=== PATIENT | female | born 1965 | race Two or more races ===

== ENCOUNTER 2023-05-02 08:22 | Day surgery (SDC) | payer OTHER ==
[~2023-05-02] VITALS: Ht 160 cm; Wt 68.0 kg
[~2023-05-02 08:22] MED LIST: AMBIE PO; ATIVAN0.5 M1 PO; COZAAR100 MG PO; CREST PO; CYMBALTA60 MG PO; EVISTA60 MG PO; GLUMETZA500 MG PO; NORVASC2.5 M1 PO
== END 2023-05-02 15:15 | disposition home or self-care (01) ==
LOC: CIR.AMB 08:22
PROVIDERS: ATTEND Orthopaedic Surgery
DX: G56.21 Lesion of ulnar nerve, right upper limb (principal); M25.321 Other instability, right elbow; I10 Essential (primary) hypertension; Z20.822 Contact with and (suspected) exposure to COVID-19

== ENCOUNTER 2024-04-30 06:34 | Day surgery (SDC) | payer OTHER ==
[~2024-04-30] VITALS: Ht 157.5 cm; Wt 67.1 kg
[2024-04-30] MEDS ORDERED: CLINDAMYCIN PHOSPHATE 150 MG/ML (900mg) ONE (07:39)
[2024-04-30] MEDS ORDERED: BUPIVACAINE HCL/MPF 0.5% 30ML VIAL ONE (09:11)
[2024-04-30] MEDS ORDERED: KETOROLAC TROMETHAMINE 30 MG VIAL ONE (09:11)
[2024-04-30] MEDS ORDERED: LIDOCAINE HCL 1%/EPINEPHRINE 20ML VIAL IJ ONE (09:12)
[2024-04-30] MEDS ORDERED: SUGAMMADEX SODIUM 200 MG/2 ML VIAL IV ONE (10:04)
== END 2024-04-30 13:45 | disposition home or self-care (01) ==
LOC: CIR.AMB 06:34
PROVIDERS: ATTEND Orthopaedic Surgery
DX: M75.122 Complete rotator cuff tear or rupture of left shoulder, not specified as traumatic (principal); M75.22 Bicipital tendinitis, left shoulder; M24.112 Other articular cartilage disorders, left shoulder; E11.9 Type 2 diabetes mellitus without complications; I10 Essential (primary) hypertension; M79.7 Fibromyalgia; Z88.0 Allergy status to penicillin